=== PATIENT | female | born 1975 | race Caucasian/White ===

== ENCOUNTER 2020-10-17 08:19 | Outpatient (CLI) | payer OTHER ==
[~2020-10-17 08:19] MED LIST: SYNTHROID137 MCG PO
== END 2020-10-17 08:26 | disposition home or self-care (01) ==
LOC: LAB 08:19
PROVIDERS: ATTEND Internal Medicine Hematology & Oncology
DX: D50.8 Other iron deficiency anemias (principal); R79.89 Other specified abnormal findings of blood chemistry; K76.89 Other specified diseases of liver; D63.8 Anemia in other chronic diseases classified elsewhere; D55.0 Anemia due to glucose-6-phosphate dehydrogenase [G6PD] deficiency; D51.1 Vitamin B12 deficiency anemia due to selective vitamin B12 malabsorption with proteinuria; D51.0 Vitamin B12 deficiency anemia due to intrinsic factor deficiency; E03.8 Other specified hypothyroidism; E06.3 Autoimmune thyroiditis; C56.9 Malignant neoplasm of unspecified ovary; R97.8 Other abnormal tumor markers; R97.1 Elevated cancer antigen 125 [CA 125]; R97.0 Elevated carcinoembryonic antigen [CEA]; D50.0 Iron deficiency anemia secondary to blood loss (chronic); N93.8 Other specified abnormal uterine and vaginal bleeding

== ENCOUNTER → 2021-03-27 08:57 | Outpatient (CLI) | payer OTHER | END | disposition home or self-care (01) | LOC: LAB 08:57 | PROVIDERS: ATTEND Internal Medicine Hematology & Oncology | DX: D50.8 Other iron deficiency anemias (principal); R79.89 Other specified abnormal findings of blood chemistry; I10 Essential (primary) hypertension; R74.02 Elevation of levels of lactic acid dehydrogenase [LDH]; K76.89 Other specified diseases of liver; D51.8 Other vitamin B12 deficiency anemias; E03.8 Other specified hypothyroidism; R97.8 Other abnormal tumor markers; R97.1 Elevated cancer antigen 125 [CA 125]; D50.0 Iron deficiency anemia secondary to blood loss (chronic); E06.3 Autoimmune thyroiditis ==

== ENCOUNTER 2021-04-12 10:22 | Outpatient (CLI) | payer OTHER | END 2021-04-12 10:26 | disposition home or self-care (01) | LOC: SONOGRAMA 10:22 | PROVIDERS: ATTEND Pathology Anatomic Pathology & Clinical Pathology | DX: D34 Benign neoplasm of thyroid gland (principal); E06.3 Autoimmune thyroiditis ==

== ENCOUNTER → 2021-05-11 13:00 | Outpatient (CLI) | payer OTHER | END | disposition home or self-care (01) | LOC: LAB 13:00 | PROVIDERS: ATTEND Internal Medicine Hematology & Oncology | DX: D50.8 Other iron deficiency anemias (principal) ==

== ENCOUNTER 2024-03-07 11:11 | Outpatient (CLI) | payer OTHER | END 2024-03-07 11:18 | disposition home or self-care (01) | LOC: RAD 11:11 | PROVIDERS: ATTEND Obstetrics & Gynecology | DX: R07.9 Chest pain, unspecified (principal) ==

== ENCOUNTER 2024-10-23 07:15 | Inpatient (IN) | payer OTHER ==
[~2024-10-23] VITALS: Ht 157.5 cm; Wt 77.1 kg
[2024-10-23 08:55] VITALS: BP 118/66
[2024-10-23 09:14] VITALS: BP 119/83
[2024-10-23 09:28] LABS: PH,URINE 6.5 (5.0-8.0); URINE APPEARANCE Clear; URINE BILIRRUBIN Negative (NEGATIVE); URINE BLOOD Negative; URINE COLOR Yellow; URINE GLUCOSE Negative (NEGATIVE); URINE KETONE Negative (NEGATIVE); URINE LEUKOCYTE Small; URINE NITRATE Negative; URINE PROTEIN Negative (NEGATIVE); URINE UROBILINOGEN 0.2 E.U./dl
[2024-10-23 09:30] LABS: HEMATOCRIT 35.6 % (36.0-45.00); HEMOGLOBIN 11.4 g/dL (12.0-15.00); MEAN CELL VOLUME 75.1 fL (80.00-100.00); MEAN CORPUSCULAR HGB CONC 31.9 g/dl (32.0-36.0); PLATELET COUNT 218 K/uL (150-450); RED BLOOD COUNT 4.74 M/uL (4.00-6.00); RED CELL DISTRIBUTION WIDTH 18.4 % (11.5-14.5)
[2024-10-23 09:32] LABS: URINE BACTERIA 3625.3 uL (0.0-1933); URINE EPITHELIAL CELLS 121.7 uL (0.0-38.8); URINE RBC 4.7 uL (0.0-20.8); URINE WBC 66.1 uL (0.0-23.2)
[2024-10-23 09:35] LABS: URINE CAST 0.14 uL (0.0-1.40)
[2024-10-23 09:50] LABS: INR 0.96; PARTIAL THROMBOPLASTIN TIME 25.6 SECONDS (22.0-34.0); PROTHROMBIN TIME 10.5 SECONDS (9.0-11.5)
[2024-10-23 10:19] LABS: ALBUMIN 3.8 gm/dL (3.4-5.0); BILIRUBIN TOTAL 0.42 mg/dL (0.3-1.2); CALCIUM 9.5 mg/dL (8.5-10.1); CREATININE SERUM 0.59 mg/dL (0.55-1.02); GFR 108.79; GLOBULINA 3.2 G/DL (2.4-3.5); POTASSIUM 3.85 mEq/L (3.5-5.1); TSH 0.358 uIU/mL (0.358-3.74)
[2024-10-31] MEDS ORDERED: CEFOXITIN SODIUM 2,000 MG VIAL IV ONE (08:45)
[2024-10-31] MEDS ORDERED: LIDOCAINE HCL 1%/EPINEPHRINE 20ML VIAL IJ ONE (08:45)
[2024-10-31] MEDS ORDERED: CHLORHEXIDINE GLUCONATE 120 ML BOTTLE TOP ONE (08:45)
[2024-10-31] MEDS ORDERED: BUPIVACAINE HCL/MPF 0.5% 30ML VIAL ONE (08:45)
[2024-10-31] MEDS ORDERED: POVIDONE-IODINE 118 ML BOTT TOP ONE (09:01)
[2024-10-31] MEDS ORDERED: RINGERS SOLUTION,LACTATED 1,000 ML IV SCH (11:15)
[2024-10-31] MEDS ORDERED: MORPHINE SULFATE 4 MG/ML VIAL IV ONE (11:45)
[2024-10-31] MEDS ORDERED: PROMETHAZINE HCL 50 MG/ML AMPUL IV SCH (12:00)
[2024-10-31] MEDS ORDERED: MEPERIDINE HCL/PF 50 MG/ML VIAL IV SCH (12:00)
[2024-10-31] MEDS ORDERED: PROMETHAZINE HCL 50 MG/ML AMPUL IM ONE (14:12)
[2024-10-31 17:13] LABS: HEMATOCRIT 31.7 % (36.0-45.00); MEAN CELL VOLUME 75.7 fL (80.00-100.00); MEAN CORPUSCULAR HGB CONC 31.7 g/dl (32.0-36.0); PLATELET COUNT 186 K/uL (150-450); RED BLOOD COUNT 4.18 M/uL (4.00-6.00); RED CELL DISTRIBUTION WIDTH 17.5 % (11.5-14.5)
[2024-10-31 18:55] VITALS: BP 118/66
[2024-10-31 20:00] VITALS: BP 126/77
[2024-11-01 01:47] VITALS: BP 110/73
[2024-11-01 06:51] VITALS: BP 100/66
[2024-11-01] MEDS ORDERED: ACETAMINOPHEN WITH CODEINE 1 UDTAB TABLET PO ONE (08:30)
[2024-11-01] MEDS ORDERED: Tylenol #3 PO (08:35)
[2024-11-01] MEDS ORDERED: NAPR500T14 PO (08:35)
== END 2024-11-01 09:34 | disposition home or self-care (01) | DRG 743 ==
LOC: O/R 10-31 06:20 → SURH 10-31 07:15 → OB/GYN 10-31 15:59
PROVIDERS: ADMIT Obstetrics & Gynecology; ATTEND Obstetrics & Gynecology
PROC: 0UT7FZZ Resection of Bilateral Fallopian Tubes, Via Natural or Artificial Opening With Percutaneous Endoscopic Assistance (ICD-10-PCS; 2024-10-31)
PROC: 0UT2FZZ Resection of Bilateral Ovaries, Via Natural or Artificial Opening With Percutaneous Endoscopic Assistance (ICD-10-PCS; 2024-10-31)
PROC: 0JQC0ZZ Repair Pelvic Region Subcutaneous Tissue and Fascia, Open Approach (ICD-10-PCS; 2024-10-31)
PROC: 0USG4ZZ Reposition Vagina, Percutaneous Endoscopic Approach (ICD-10-PCS; 2024-10-31)
PROC: 0TJB8ZZ Inspection of Bladder, Via Natural or Artificial Opening Endoscopic (ICD-10-PCS; 2024-10-31)
PROC: 0UT9FZZ Resection of Uterus, Via Natural or Artificial Opening With Percutaneous Endoscopic Assistance (ICD-10-PCS; principal; 2024-10-31 09:00)
DX: D25.1 Intramural leiomyoma of uterus (principal); D25.2 Subserosal leiomyoma of uterus; D25.0 Submucous leiomyoma of uterus; N81.10 Cystocele, unspecified; N84.0 Polyp of corpus uteri; N92.0 Excessive and frequent menstruation with regular cycle; N87.9 Dysplasia of cervix uteri, unspecified